=== PATIENT | male | born 1955 | race Caucasian/White ===

== ENCOUNTER → 2020-05-28 10:07 | Outpatient (BNVA) | payer MEDICARE, OTHER, SELFPAY | PROVIDERS: PCP Nurse Practitioner Family; Visit Provider Orthopaedic Surgery | DX: Z76.89 Persons encountering health services in other specified circumstances (principal) ==

== ENCOUNTER → 2020-06-18 11:14 | Outpatient (BNVA) | payer MEDICARE, OTHER, SELFPAY | PROVIDERS: PCP Nurse Practitioner Family; Referring Provider Nurse Practitioner Family; Visit Provider Nurse Practitioner Family | DX: Z01.810 Encounter for preprocedural cardiovascular examination (principal); I11.9 Hypertensive heart disease without heart failure; I49.3 Ventricular premature depolarization; M19.90 Unspecified osteoarthritis, unspecified site; F17.200 Nicotine dependence, unspecified, uncomplicated; Z71.6 Tobacco abuse counseling | CPT/HCPCS: 93005; 99214 ==

== ENCOUNTER 2020-06-21 09:46 | Outpatient (REF) | payer MEDICARE, OTHER, SELFPAY ==
[2020-06-21 11:14] LABS: MANUAL DIFF FLAG NO
[2020-06-21 11:34] LABS: Basophils Percent Auto 0.5 % (0-2); Eosinophils Absolute Auto 0.2 X10*3/uL (0.0-0.4); Eosinophils Percent Auto 2.6 % (0-4); Hemoglobin 14.3 g/dl (14.0-18.0); Imm Gran Abs Auto 0.05 X10*3/uL (0.00-0.03); Imm Gran Pct Auto 0.8 % (0.0-0.4); Lymphocytes Absolute Auto 1.6 X10*3/uL (1.2-4.9); Lymphocytes Percent Auto 26.2 % (20-40); Mean Corpuscular HGB Conc 33.3 g/dl (31.0-36.0); Mean Corpuscular Hemoglobin 33.2 pg (27.0-33.0); Mean Corpuscular Volume 99.8 fL (80-98); Mean Platelet Volume 10.2 fL (9.4-12.4); Monocytes Absolute Auto 0.6 X10*3/uL (0.1-1.2); Monocytes Percent Auto 9.2 % (2-11); Neutrophils Absolute Auto 3.8 X10*3/uL (2.0-8.3); Neutrophils Percent Auto 60.7 % (45-73); Platelet Count 137 X10*3/uL (160-400); Red Blood Count 4.31 X10*6/uL (4.60-5.80); Red Cell Distribution Width 11.9 % (11.0-16.0); White Blood Count 6.2 X10*3/uL (4.8-10.8)
[2020-06-21 11:38] LABS: Estimated Average Glucose 88 mg/dL; Hemoglobin A1c % 4.7 %
[2020-06-21 11:54] LABS: Anion Gap 12 (12-20); Blood Urea Nitrogen 15 mg/dL (9-16); Calcium 8.4 mg/dL (8.4-10.2); Carbon Dioxide 24 mmol/L (22-29); Chloride 106 mmol/L (96-108); Estimated Glomerular Filt Rate > 60; Glucose Random 86 mg/dL (60-115); Sodium 138 mmol/L (135-145)
== END 2020-06-21 09:47 | disposition home or self-care (01) ==
LOC: HO.HMGCLDS 09:46
PROVIDERS: PCP Nurse Practitioner Family; Visit Provider Orthopaedic Surgery
DX: Z01.810 Encounter for preprocedural cardiovascular examination (principal); Z01.812 Encounter for preprocedural laboratory examination
CPT/HCPCS: 36415; 80048; 83036; 85025

== ENCOUNTER → 2020-06-21 13:18 | Outpatient (REF) | payer MEDICARE, OTHER, SELFPAY ==
--- NOTE | 2020-06-21 13:21 | CA_ITS ---
Transthoracic Echocardiogram Patient (Last, First, Middle): Petey Reis A Gender: Male Date of : 1955 Age: 65 Procedure Date: 06/21/2020 Procedure Type: Transthoracic Echocardiogram Location: OP Height: 177.8 cm Weight: 103.42 kg BSA: 2.21 m2 Heart Rate: bpm BP: 128 / 90 mmHg Center Customer Service Associate: MARLENA Referring MD: Jasmin Reis NP-Karin Spot Sprayer: Osvaldo Cuellar MD Symptoms: Z01.810 - Encounter for preprocedural cardiovascular examination Study Quality: Fair ECG Rhythm: Sinus Conclusions: - 1. Normal LV systolic function with impaired relaxation filling pattern 2. RV appears mildly increased in size but could be due to off axis views 3. Normal cardiac valvular Doppler 4. Normal RV systolic pressure 5. No pericardial effusion Findings Left Ventricle Normal left ventricular size, thickness, and systolic function. The visually estimated ejection fraction is between 60-65%. Spectral Doppler is indicative of an impaired relaxation filling pattern. E/E prime ratio is <8, consistent with normal filling pressures. Evidence suggests grade I (mild) diastolic dysfunction. There is mild septal asymmetric hypertrophy. Right Ventricle Mildly increased right ventricular cavity size. There is normal right ventricular systolic function. Atria The left atrium is likely dilated. Interatrial shunt cannot be excluded. The right atrium is normal in size. Aortic Valve The aortic valve structure and function is likely normal. There is no aortic valve stenosis. There is no aortic valve regurgitation. Mitral Valve Normal mitral valve structure and function. There is trace mitral valve regurgitation. There is no mitral valve stenosis. Pulmonic Valve The pulmonic valve was not well visualized. Tricuspid Valve Likely normal tricuspid valve structure and function. There is trace tricuspid valve regurgitation. The right ventricular systolic pressure is normal. The right ventricular systolic pressure is 28 mmHg. Normal right atrial pressure. There is no evidence of pulmonary hypertension. Great Vessels All visible segments of the aorta are normal in size. The pulmonary artery was not well visualized. Venous The inferior vena cava was not well visualized. Pericardium/Pleural There is no evidence of pericardial effusion. Prior Study Comparison No significant change compared to prior study dated: 08/13/2016. Measurements 2D Linear Measurements IVSd: 1.40 0.6-0.9/0.6-1.0 cm LVIDd: 5.29 3.9-5.3/4.2-5.9 cm LVIDd Index: 2.39 2.4-3.2/2.2-3.1 cm/m2 LVIDs: 3.03 2.0-3.6 cm LVPWd: 0.82 0.7-1.1 cm Ao Root: 3.50 2.1-3.5 cm LA Diam: 3.80 2.7-3.8/3.0-4.0 cm LAIDs Index: 1.72 1.5-2.3 cm/m2 LV Mass: 285.85 67-162/88-224 g LV Mass Index: 129.34 43-95/49-115 g/m2 LVOT Diam: 2.30 3.0+(-)1.3 cm 2D Systolic Function EF 4C: 67.10 >55% Mitral Valve MV Pk E: 0.53 MV PK A: 0.57 MV Decel Time: 264.00 E/A: 0.90 E'Lateral: 10.70 E'Medial: 5.98 E/E' Med: 8.90 E/E' Lat: 5.00 PHT: 77.00 MVA PHT: 2.86 Decel Hutchinson: 2.02 Aortic Valve AoV Pk Larry: 1.64 AoV Pk Grad: 11.00 LVOT LVOT Pk Larry: 1.17 LVOT Mn Larry: 0.73 LVOT VTI: 0.27 LVOT Pk Grad: 5.00 LVOT Mn Grad: 3.00 LVOT Diam: 2.30 LVOT Area: 4.15 Diastolic Function MV Pk E: 0.53 MV Pk A: 0.57 E/A: 0.90 E'Medial: 5.98 E/E' Med: 8.90 E' Laterial: 10.70 E/E' Lat: 5.00 Tricuspid Valve TR Pk Larry: 2.48 TR Pk Grad: 25.00 RA Press: 3.00 RVSP: 28.00 Great Vessels Aorta Ao Root-2D: 3.50 2.0-3.7 cm Ao Asc: 3.80 2.1-3.4 cm Ao Arch: 3.60 Updated in Other Vendor System with Status of Final Osvaldo Cuellar MD electronically signed on 06/22/2020 9:56:51 AM with status of Final
== END ==
LOC: HO.CARD 13:18
PROVIDERS: PCP Nurse Practitioner Family; Visit Provider Nurse Practitioner Family
DX: Z01.810 Encounter for preprocedural cardiovascular examination (principal); I10 Essential (primary) hypertension; I51.7 Cardiomegaly
CPT/HCPCS: 36415; 80048; 83036; 85025; 93306

== ENCOUNTER 2020-06-29 10:55 | Outpatient (REF) | payer MEDICARE, OTHER, SELFPAY | END 2020-06-29 10:56 | disposition home or self-care (01) | LOC: HO.LAB 10:55 | PROVIDERS: PCP Nurse Practitioner Family; Visit Provider Physician Assistant | DX: Z01.818 Encounter for other preprocedural examination (principal); M16.11 Unilateral primary osteoarthritis, right hip; I10 Essential (primary) hypertension; F17.200 Nicotine dependence, unspecified, uncomplicated | CPT/HCPCS: 99212 ==

== ENCOUNTER 2020-07-04 06:08 | Inpatient (IN) | payer MEDICARE, OTHER, SELFPAY ==
[2020-06-25 12:48] VITALS: BP 130/72; PULSE 60; RESP 16; O2SAT 97; BMI 32.7
--- NOTE | 2020-06-25 13:31 | P.CONAN_ITS ---
Documented by User: Halle Galicia 07/03/20 12:02 HPI - Anesthesia Eval Consult details Narrative: 65yo M for L MAURY Cardiac cleared @ low-intermed PCP Cleared Labs, EKG done [facility] Past Medical History Medical History Collapsed lung HTN (hypertension) LVH (left ventricular hypertrophy) RIOS (obstructive sleep apnea) Osteoarthritis Preop cardiovascular exam PVC (premature ventricular contraction) Smoking Family History Family History Father Cancer Mother MVA (motor vehicle accident) Surgical History Surgical History H/O hemorrhoidectomy Hx of colonoscopy Social History Social History Are you a primary personal care attendant to a significant other at home: No Do you presently have visiting nurse or other home services: No Alcohol intake: current Alcohol intake frequency: a few times a month Alcohol type: beer Smoking Status: Current every day smoker Cigarettes Per Day: 4 Years Smoked: 20 Smoked in Last 30 Days: Yes Patient Interested in Nicotine Replacement: Yes Patient Given Instructions on How to Stop Smoking: Yes Date Education Initiated: 06/25/20 Second Hand Smoke Exposure: No Use of substances other than those prescribed or required for medical reasons: No Have you been hit, kicked, punched, or otherwise hurt by someone within the past year? If so, by whom?: No Advance Directives: No Advance Directives Information Provided: No Advance Directives on File: No Recently lost weight without trying: No Narrative Narrative: No recent illness >4 mets with daily 3 hour bike ride Meds Allergies Allergy/AdvReac Type Severity Reaction Status Date / Time No Known Allergies Allergy Verified 06/29/20 11:07 [No Known Allergies*] Home Medications Medication Instructions Recorded Confirmed Type ibuprofen 400 mg PO BID PRN 06/25/20 06/25/20 History Exam Exam Date and Time: June 25, 2020 1331 Height,Weight and Vital Signs: Height 5 ft 10 in Weight 103.419 kg Last Vital Signs Pulse 60 06/25/20 12:48 Resp 16 06/25/20 12:48 BP 130/72 06/25/20 12:48 Pulse Ox 97 06/25/20 12:48 Pertinent Lab Results Pertinent Lab Results: Laboratory Tests 06/21/20 06/21/20 09:54 09:54 WBC 6.2 Hgb 14.3 Hct 43.0 Plt Count 137 L Sodium 138 Potassium 4.0 Chloride 106 BUN 15 Creatinine 0.90 Narrative Narrative: ECHO 06/21/20: Nml LV sys function with impaired relaxation, mild septal assymetric hypertrophy, RV appears mildly increased in size, nml valve dopplers EKG 06/18/20: SR, LAD, non-spec T wave anb Airway Mallampati Class: I TM Dist: >3cm Neck ROM: Full Denture: Upper Loose/Missing/Broken Teeth: Yes (Missing lower molars) Heart: RRR Lungs: CTAB Assessment and Plan Assessment Anesthesia Assessment: Anesthesia Plan Discussed, Smoking Cess. Discussed and PAT Visit Documented by User: Yao Castillo 07/04/20 07:27 [facility] Past Medical History Medical History Collapsed lung HTN (hypertension) LVH (left ventricular hypertrophy) RIOS (obstructive sleep apnea) Osteoarthritis Preop cardiovascular exam PVC (premature ventricular contraction) Smoking Family History Family History Father Cancer Mother MVA (motor vehicle accident) Surgical History Surgical History H/O hemorrhoidectomy Hx of colonoscopy Social History Social History Are you a primary personal care attendant to a significant other at home: No Do you presently have visiting nurse or other home services: No Alcohol intake: current Alcohol intake frequency: a few times a month Alcohol type: beer Smoking Status: Current every day smoker Cigarettes Per Day: 4 Years Smoked: 20 Smoked in Last 30 Days: Yes Patient Interested in Nicotine Replacement: Yes Patient Given Instructions on How to Stop Smoking: Yes Date Education Initiated: 06/25/20 Second Hand Smoke Exposure: No Use of substances other than those prescribed or required for medical reasons: No Have you been hit, kicked, punched, or otherwise hurt by someone within the past year? If so, by whom?: No Advance Directives: No Advance Directives Information Provided: No Advance Directives on File: No Recently lost weight without trying: No Meds Allergies Allergy/AdvReac Type Severity Reaction Status Date / Time No Known Allergies Allergy Verified 06/29/20 11:07 [No Known Allergies*] Home Medications Medication Instructions Recorded Confirmed Type ibuprofen 400 mg PO BID PRN 06/25/20 06/25/20 History Assessment and Plan Assessment Anesthesia Assessment: Anesthesia Plan Discussed Final Anesthetic Review NPO: Yes ASA Class: II Final Preanesthetic Review: No Changes in Pt Med Stat and Consent Obtained/Reviewed Anesthetic Plan Anesthetic Plan: GA Disposition: Standard PACU
[2020-06-25 15:35] LABS: MRSA Nasal PCR NEGATIVE (Negative); SA Nasal PCR NEGATIVE (Negative)
[2020-07-04] VITALS (13 sets, daily range): BP systolic 127–160; BP diastolic 64–99; PULSE 73–89; RESP 16–20; TEMP 36.4–37.2; O2SAT 92–98
[2020-07-04] MEDS: oxyCODONE HCl ER 10 MG TAB.ER.12H PO ×2 (06:22→20:41)
[2020-07-04] MEDS: Gabapentin 300 MG CAPSULE 600 MG PO (06:22)
[2020-07-04 06:23] LABS: COVID-19 Test Negative (Negative)
[2020-07-04] MEDS: Lactated Ringers 1,000 ML 100 ML IVCONT (06:23)
--- NOTE | 2020-07-04 08:27 | XR_ITS ---
EXAMINATION: XR PELVIS CLINICAL INFORMATION: Status post total hip arthroplasty COMPARISON: 02/06/2020 TECHNIQUE: AP view of the pelvis. FINDINGS: Status post left total hip arthroplasty. The arthroplasty components are in usual position and alignment. No periprosthetic fracture. Post surgical changes with skin natalia, gas in the soft tissues. XR/XR pelvis 1-2V IMPRESSION: Post surgical changes status post left total hip arthroplasty.
--- NOTE | 2020-07-04 09:27 | P.BOP_ITS ---
Brief Operative Note Date of procedure: 07/04/20 Pre-op diagnosis: lef hip OA Post-op diagnosis: same Procedure: left MAURY Implants: syl 54 trident with 54 elevated rim liner, accolade 2 #5 127 deg with 36 ceramic +0 Surgeon: Jacoby Benites MD Anesthesia: GETA and local Clinical Trials Assistant: Luis Bustillo Estimated blood loss (mL): 200 IV fluids (mL): 1,000 Pathology: other Condition: stable Disposition: PACU
--- NOTE | 2020-07-04 11:11 | OP_ITS ---
SURGEON: Jacoby Benites MD INDICATIONS: A 65-year-old gentleman with severe osteoarthritis of the left hip, consented to undergo hip arthroplasty. PREOPERATIVE DIAGNOSIS: Left hip osteoarthritis. POSTOPERATIVE DIAGNOSIS: Left hip osteoarthritis. PROCEDURE PERFORMED: Left total hip arthroplasty. ESTIMATED BLOOD LOSS: 200 mL. COMPLICATIONS: None. ANESTHESIA: General and local. ASSISTANTS: SPECIMENS: IMPLANTS: Slava Trident 54 hemispherical acetabulum with 20-degree elevated lip liner, Accolade II #5 127-degree with a ceramic +0 36 femoral head. FLUIDS: 1 L. PROCEDURE IN DETAIL: The patient was brought to the operating room, placed in the right lateral decubitus position. All bony prominences were well padded. He was prepped and draped in standard sterile fashion. Time-out was called to identify proper site, proper procedure, proper surgeon. IV antibiotics per weight were administered. I began by making a curvilinear incision over the posterolateral aspect of the greater trochanter. Dissection was taken down to the tensor fascia and this was incised in line with the incision. A Charnley retractor was placed. I then identified the piriformis, cauterized the circumflex vessels and made a full-thickness capsulotomy extending down from the piriformis to the lesser trochanter. The capsule on head and piriformis were tagged and the head was dislocated. The head was eburnated and deformed. A neck cut was made just proximal to the lesser trochanter. I then placed my anterior-posterior acetabular retractors. He had a very deep acetabulum secondary to the body habitus, so care was taken to identify the fovea and to ream down to the inner table. I performed a labrectomy and then sequentially reamed up to 54 and a 54 Trident revision cup was placed in 20 degrees of anteversion and 45 degrees of inclination. A posterior lip liner was placed and then I turned my attention to the femur. Qianrui Clothes cutter was used to lateralize and then I sequentially broached up to a 5. A 5 was trialed. I was happy with the stability and range, therefore my final 5 implant was trialed and I again trialed a 0+ 25 head. I was happy with the 0 head. This was placed. I then performed a layered closure with FiberWire for the capsule and natalia on skin. The patient was placed in sterile dressing. Radiographs were obtained and he was taken to recovery room in stable condition. There were no known complications. BARREL RIFLER HOOK: NINO Blue. MD PETTY Pate/ALEXANDER / [id number]
--- NOTE | 2020-07-04 12:31 | PM.IMCN ---
History of Present Illness Data of Consult Service Date: 07/04/20 Requesting physician: Jacoby Benites Primary Care Provider: Breezy Rogers, [facility] HPI Reason for consult: htn 65-year-old male was in the hospital after elective left hip surgery for osteoarthritis. Patient has a history of hypertension and left ventricular hypertrophy. He is treated with losartan which was recently increased to 75 mg p.o. daily. He is also an active smoker, he states he smokes less than half a pack per day and is not feeling any withdrawal at this time. Patient denies any chest pain, shortness of breath, fever, chills. Review of Systems Review of Systems: Constitutional: Denies fever, denies Chills Eyes: denies blurry vision ENT: denies sore throat CVS: denies chest pain Respiratory: Denies dyspnea GI: no abdominal pain : denies dysuria MSK: denies neck pain Skin: denies rash Neuro: denies specific motor weakness Psych: denies suicidal ideation Endocrine: denies heat/cold intoleratnce Hematologic: denies easy bleeding Allergy: denies hives PMFSH Medical History Collapsed lung HTN (hypertension) LVH (left ventricular hypertrophy) RIOS (obstructive sleep apnea) Osteoarthritis Preop cardiovascular exam PVC (premature ventricular contraction) Smoking Family History Father Cancer Mother MVA (motor vehicle accident) Family history: reviewed and not pertinent Surgical History H/O hemorrhoidectomy Hx of colonoscopy Social History Are you a primary residential child care counselor to a significant other at home: No Do you presently have visiting nurse or other home services: No Alcohol intake: current Alcohol intake frequency: a few times a month Alcohol type: beer Smoking Status: Current every day smoker Cigarettes Per Day: 4 Years Smoked: 20 Smoked in Last 30 Days: Yes Patient Interested in Nicotine Replacement: Yes Patient Given Instructions on How to Stop Smoking: Yes Date Education Initiated: 06/25/20 Second Hand Smoke Exposure: No Use of substances other than those prescribed or required for medical reasons: No Have you been hit, kicked, punched, or otherwise hurt by someone within the past year? If so, by whom?: No Advance Directives: No Advance Directives Information Provided: No Advance Directives on File: No Recently lost weight without trying: No Meds Allergies Allergy/AdvReac Type Severity Reaction Status Date / Time No Known Allergies Allergy Verified 06/29/20 11:07 [No Known Allergies*] Home Medications Medication Instructions Recorded Confirmed Type ibuprofen 400 mg PO BID PRN 06/25/20 06/25/20 History Physical Exam Vital Signs and Narrative: Vital Signs: Last Vital Signs Temp 98.4 F 07/04/20 12:00 Pulse 80 07/04/20 12:00 Resp 18 07/04/20 12:00 BP 137/93 H 07/04/20 12:00 Pulse Ox 98 07/04/20 12:00 Body Mass Index 32.7 General: no acute distress HEENT: atraumatic Neck: normal to visual inspection CVS: S1, S2, RRR Resp: CTA bilateral Chest: non tender GI: soft, non tender, non distended : no CVA tenderness Skin: no rashes Extremities: no edema Neuro: Oriented X3, grossly intact Psych: cooperative, Results Labs Labs: Laboratory Results - last 24 hr 07/04/20 05:45 COVID-19 (ELANA) Negative COVID-19 Clin Com See Note Imaging Radiologist's Impressions: Impressions Pelvis X-Ray 07/04/20 08:27 IMPRESSION: Post surgical changes status post left total hip arthroplasty. Assessment and Plan (1) HTN (hypertension): Status: Acute (2) LVH (left ventricular hypertrophy): Status: Acute (3) Osteoarthritis of left hip: Status: Acute (4) Smoking: Status: Acute 65M presented for elective left hip replacement osteoarthritis left hip status post left total hip arthroplasty management per Orthopedics hypertension and left ventricular hypertrophy continue losartan smoking cessation states that he does not need a nicotine patch at this time
[2020-07-04] MEDS: Dextrose 5 % and 0.45 % NaCl 1,000 ML 80 ML IVCONT (12:41)
[2020-07-04] MEDS: ceFAZolin Sodium/Dextrose,Iso 2 GM/50 ML PIGGYBACK IV (13:27)
[2020-07-04] MEDS: oxyCODONE HCl Immed Release 5 MG TABLET 10 MG PO (17:10)
[2020-07-04] MEDS: HYDROmorphone HCl 0.5 MG/0.5 ML SYRINGE 0.25 MG IVPUSH (20:40)
[2020-07-04] MEDS: Celecoxib 200 MG CAPSULE PO (20:41)
[2020-07-05] VITALS (8 sets, daily range): BP systolic 106–147; BP diastolic 79–101; PULSE 65–89; RESP 18–20; TEMP 36.2–36.5; O2SAT 78–97; BMI 32.7
[2020-07-05] MEDS: Dextrose 5 % and 0.45 % NaCl 1,000 ML 80 ML IVCONT (00:13)
[2020-07-05] MEDS: oxyCODONE HCl Immed Release 5 MG TABLET 10 MG PO ×2 (06:33→18:41)
[2020-07-05 06:59] LABS: MANUAL DIFF FLAG NO
[2020-07-05 07:11] LABS: Basophils Percent Auto 0.2 % (0-2); Eosinophils Percent Auto 0.1 % (0-4); Hematocrit 37.4 % (42-52); Hemoglobin 12.5 g/dl (14.0-18.0); Imm Gran Abs Auto 0.08 X10*3/uL (0.00-0.03); Imm Gran Pct Auto 0.6 % (0.0-0.4); Lymphocytes Absolute Auto 1.5 X10*3/uL (1.2-4.9); Lymphocytes Percent Auto 12.2 % (20-40); Mean Corpuscular HGB Conc 33.4 g/dl (31.0-36.0); Mean Corpuscular Hemoglobin 33.2 pg (27.0-33.0); Mean Corpuscular Volume 99.5 fL (80-98); Mean Platelet Volume 9.8 fL (9.4-12.4); Monocytes Percent Auto 8.4 % (2-11); Neutrophils Absolute Auto 9.7 X10*3/uL (2.0-8.3); Neutrophils Percent Auto 78.5 % (45-73); Platelet Count 210 X10*3/uL (160-400); Red Blood Count 3.76 X10*6/uL (4.60-5.80); Red Cell Distribution Width 11.9 % (11.0-16.0); White Blood Count 12.4 X10*3/uL (4.8-10.8)
--- NOTE | 2020-07-05 07:33 | PM.PNORT ---
Subjective Subjective Interval history: POD1 s/p LTHA pt. is resting comfortably in the recliner. He states that his pain is well managed. No overnight events. He has gotten up to use the rest room. Physical Exam Vital Signs: Vital Signs: Last Vital Signs Temp 97.3 F 07/05/20 03:38 Pulse 65 07/05/20 03:38 Resp 19 07/05/20 03:38 BP 121/82 07/05/20 03:38 Pulse Ox 96 07/05/20 03:38 Body Mass Index 32.7 Const: General: cooperative, healthy appearing and no acute distress Resp: Effort & Inspection: normal respiratory effort and able to speak in complete sentences Cardio: Rate: regular rate Peripheral pulses: Peripheral pulses 2+ throughout GI: Inspection: Yes normal to inspection Palpation (GI): Soft to palpation Skin: General skin exam: no rashes or lesions noted Extrem: Other: Lt hip no ecchymosis, redness, or drainage Dressing is clean, dry, and intact. NVI. Progress Note: A&P Assessment and plan (1) History of total left hip arthroplasty: Status: Acute Assessment and Plan: Continue pain mgmnt Begin ASA for dvt ppx today begin PT for LT MAURY / posterior precautions Dispo planning-Pending PT eval, pain mgmnt Fall Risk Details Current Medications: Current Medications Generic Name Dose Route Start Last Admin Trade Name Freq PRN Reason Stop Dose Admin Acetaminophen 650 mg 07/04/20 11:42 Acetaminophen 325 Mg Tablet PO Q6H PRN Pain, Mild (Pain Scale 1-3) Celecoxib 200 mg 07/04/20 21:00 07/04/20 20:41 Celecoxib 200 Mg Capsule PO 200 mg BID SAMARA Administration Fentanyl 50 mcg 07/04/20 10:02 Fentanyl Citrate/Pf 100 Mcg/2 Ml Vial IVPUSH Q30M PRN Pain, Moderate (Pain Scale 4-6 Fentanyl 50 mcg 07/04/20 10:03 Fentanyl Citrate/Pf 100 Mcg/2 Ml Vial IVPUSH Q5M PRN Pain, Moderate (Pain Scale 4-6 Hydromorphone HCl 0.5 mg 07/04/20 10:03 Hydromorphone Hcl 0.5 Mg/0.5 Ml Syringe IVPUSH Q5M PRN Pain, Severe (Pain Scale 7-10) Hydromorphone HCl 0.25 mg 07/04/20 11:42 07/04/20 20:40 Hydromorphone Hcl 0.5 Mg/0.5 Ml Syringe IVPUSH 0.25 mg Q4H PRN Administration Pain, Severe (Pain Scale 7-10) Dextrose/Sodium Chloride 1,000 mls @ 80 mls/hr 07/04/20 11:42 07/05/20 00:13 D51/2ns IVCONT 80 mls/hr .[id number] SAMARA Administration Losartan Potassium 75 mg 07/05/20 09:00 Losartan Potassium 25 Mg Tablet PO DAILY [facility] Protocol Naloxone HCl 0.2 mg 07/04/20 11:42 Naloxone Hcl 0.4 Mg/Ml Vial IVPUSH Q2M PRN Excessive sedation or RR < 8 Ondansetron HCl 4 mg 07/04/20 10:00 Ondansetron Hcl 4 Mg/2 Ml Vial IVPUSH ONCE PRN Nausea and Vomiting Ondansetron HCl 4 mg 07/04/20 11:42 Ondansetron Hcl 4 Mg/2 Ml Vial IVPUSH Q8H PRN Nausea and Vomiting Oxycodone HCl 10 mg 07/04/20 10:03 Oxycodone Hcl Immed Release 5 Mg Tablet PO ONCE PRN Pain, Severe (Pain Scale 7-10) Oxycodone HCl 10 mg 07/04/20 11:42 07/05/20 06:33 Oxycodone Hcl Immed Release 5 Mg Tablet PO 10 mg Q4H PRN Administration Pain, Moderate (Pain Scale 4-6 Oxycodone HCl 10 mg 07/04/20 21:00 07/04/20 20:41 Oxycodone Hcl Er 10 Mg Tab.Er.12h PO 10 mg BID SAMARA Administration Senna 17.2 mg 07/04/20 11:42 Sennosides 8.6 Mg Tablet PO BEDTIME PRN Constipation Sodium Chloride 3 ml 07/04/20 16:00 07/05/20 07:08 0.9 % Sodium Chloride Flush 3 Ml Syringe IVFLUSH Not Given QSHIFT [facility] Time Spent With Patient Time: Total time spent is greater than 50% in coordination of care (as documented) at patient's floor/unit and/or counseling patient: Time with patient: 15 - 24 minutes
[2020-07-05 07:54] LABS: Anion Gap 11 (12-20); Blood Urea Nitrogen 10 mg/dL (9-16); Calcium 8.1 mg/dL (8.4-10.2); Carbon Dioxide 25 mmol/L (22-29); Chloride 101 mmol/L (96-108); Creatinine Clr Calc Pharmacy 118.2; Estimated Glomerular Filt Rate > 60; Glucose Fasting 111 mg/dL (60-99); Potassium 4.4 mmol/l (3.3-5.1); Sodium 133 mmol/L (135-145)
[2020-07-05] MEDS: Aspirin 325 MG TABLET PO ×2 (08:11→21:28)
[2020-07-05] MEDS: oxyCODONE HCl ER 10 MG TAB.ER.12H PO ×2 (08:12→21:28)
[2020-07-05] MEDS: Celecoxib 200 MG CAPSULE PO ×2 (08:12→21:28)
[2020-07-05] MEDS: Losartan Potassium 25 MG TABLET 75 MG PO (08:12)
--- NOTE | 2020-07-05 09:01 | P.PNIM_ITS ---
Subjective Subjective Date of Service: 07/05/20 Interval History: feels well Cardiovascular Cardiovascular: Reports no additional cardiovascular complaints Respiratory Respiratory: Reports no additional respiratory complaints Physical Exam Vital Signs: Vital Signs: Last Vital Signs Temp 97.2 F 07/05/20 08:00 Pulse 70 07/05/20 08:00 Resp 19 07/05/20 08:00 BP 129/101 H 07/05/20 08:00 Pulse Ox 95 07/05/20 08:00 Body Mass Index 32.7 General: AO X 3, no acute distress Resp: CTA bilateral CVS: S1,S2,RRR GI: soft, non tender, non distended Neuro: motor grossly intact Psych: appropriate affect Objective Data Current Medications Generic Name Dose Route Start Last Admin Trade Name Freq PRN Reason Stop Dose Admin Acetaminophen 650 mg 07/04/20 11:42 Acetaminophen 325 Mg Tablet PO Q6H PRN Pain, Mild (Pain Scale 1-3) Aspirin 325 mg 07/05/20 10:00 07/05/20 08:11 Aspirin 325 Mg Tablet PO 325 mg BID SAMARA Administration Celecoxib 200 mg 07/04/20 21:00 07/05/20 08:12 Celecoxib 200 Mg Capsule PO 200 mg BID SAMARA Administration Fentanyl 50 mcg 07/04/20 10:02 Fentanyl Citrate/Pf 100 Mcg/2 Ml Vial IVPUSH Q30M PRN Pain, Moderate (Pain Scale 4-6 Fentanyl 50 mcg 07/04/20 10:03 Fentanyl Citrate/Pf 100 Mcg/2 Ml Vial IVPUSH Q5M PRN Pain, Moderate (Pain Scale 4-6 Hydromorphone HCl 0.5 mg 07/04/20 10:03 Hydromorphone Hcl 0.5 Mg/0.5 Ml Syringe IVPUSH Q5M PRN Pain, Severe (Pain Scale 7-10) Hydromorphone HCl 0.25 mg 07/04/20 11:42 07/04/20 20:40 Hydromorphone Hcl 0.5 Mg/0.5 Ml Syringe IVPUSH 0.25 mg Q4H PRN Administration Pain, Severe (Pain Scale 7-10) Dextrose/Sodium Chloride 1,000 mls @ 80 mls/hr 07/04/20 11:42 07/05/20 00:13 D51/2ns IVCONT 80 mls/hr .[id number] SAMARA Administration Losartan Potassium 75 mg 07/05/20 09:00 07/05/20 08:12 Losartan Potassium 25 Mg Tablet PO 75 mg DAILY SAMARA Administration Protocol Naloxone HCl 0.2 mg 07/04/20 11:42 Naloxone Hcl 0.4 Mg/Ml Vial IVPUSH Q2M PRN Excessive sedation or RR < 8 Ondansetron HCl 4 mg 07/04/20 10:00 Ondansetron Hcl 4 Mg/2 Ml Vial IVPUSH ONCE PRN Nausea and Vomiting Ondansetron HCl 4 mg 07/04/20 11:42 Ondansetron Hcl 4 Mg/2 Ml Vial IVPUSH Q8H PRN Nausea and Vomiting Oxycodone HCl 10 mg 07/04/20 10:03 Oxycodone Hcl Immed Release 5 Mg Tablet PO ONCE PRN Pain, Severe (Pain Scale 7-10) Oxycodone HCl 10 mg 07/04/20 11:42 07/05/20 06:33 Oxycodone Hcl Immed Release 5 Mg Tablet PO 10 mg Q4H PRN Administration Pain, Moderate (Pain Scale 4-6 Oxycodone HCl 10 mg 07/04/20 21:00 07/05/20 08:12 Oxycodone Hcl Er 10 Mg Tab.Er.12h PO 10 mg BID SAMARA Administration Senna 17.2 mg 07/04/20 11:42 Sennosides 8.6 Mg Tablet PO BEDTIME PRN Constipation Sodium Chloride 3 ml 07/04/20 16:00 07/05/20 07:08 0.9 % Sodium Chloride Flush 3 Ml Syringe IVFLUSH Not Given QSHIFT [facility] Labs CBC & Chem 7: 07/05/20 06:27 07/05/20 06:27 Assessment and Plan (1) HTN (hypertension): Status: Acute (2) LVH (left ventricular hypertrophy): Status: Acute (3) Osteoarthritis of left hip: Status: Acute (4) Smoking: Status: Acute Assessment and Plan: 65M presented for elective left hip replacement osteoarthritis left hip status post left total hip arthroplasty management per Orthopedics on asa bid for dvt prophylaxis hypertension and left ventricular hypertrophy continue losartan, controlled smoking cessation states that he does not need a nicotine patch at this time
--- NOTE | 2020-07-05 12:56 | MHC.CM.PN ---
NURSE CAR3 SPOUT TENDER NOTE ELECTRO IC MEDICAL RECRD REVIEWED ALONG WITH CASE DISCUSSED WITH PHYSICAL AND OCCUPATIONAL THEARPIST AND STAFF NURSE , MET WITH PATIENT HE IS LIVING IN A APARTEMENT THAT HE SHARES WITH REGIS.. HE IS ACTIVE , INDEPENDEDNT IN ALL ADLS AND MOBILITY. HE HAS NO VNA NO DM E SERVICES IN THE HOME HE IS NOW POST OP DAY 1 FROM L- [facility] . HE HAS BEEN EVALUATED BY BOTH THE PHYSICAL THEARPIST AND OCCUPATIONAL THEARPIST AND THEY ARE RECOMENDING HOME PHYSICAL THEARPIST AFTER REVIEW OF VNA AGENCIES [facility]RY DISCHARGE PLAN HOME WITH [facility] , PATIENT HAS A WALKER AT HOME AND IS USING CRUTCHES HERE HE HAS 3 STEPS TO ENTER HIS HOME AND ABOUT 15 STEPS TO THE SECOND FLOOR TRANSPORATION FRIENDS PCP THERESE LESLIE AND ORTHO PEDIC SURGICAL FOLLOW UP PER DISCHARGE INSTRUCTIONS IMM Pperwork completyed.
--- NOTE | 2020-07-05 13:33 | HO.POSTANES ---
Post Anesthesia Evaluation Post Anesthesia Evaluation Vital Signs: Vital Signs Temp Pulse Resp BP Pulse Ox 07/05/20 12:54 79 147/87 H 97 07/05/20 11:43 97.5 F 79 19 147/87 H 97 07/05/20 08:00 97.2 F 70 19 129/101 H 95 07/05/20 03:38 97.3 F 65 19 121/82 96 Anesthesia: General Mental Status: Awake Pain Control: Satisfactory Nausea/Vomiting: None Hydration: Adequate Anesthesia-Related Issues: No Anes. Related Issues
[2020-07-05] MEDS: 0.9 % Sodium Chloride Flush 3 ML SYRINGE IVFLUSH ×2 (15:51→21:29)
[2020-07-05] MEDS: HYDROmorphone HCl 0.5 MG/0.5 ML SYRINGE 0.25 MG IVPUSH (21:28)
[2020-07-06 03:32] VITALS: BP 128/74; PULSE 68; RESP 20; TEMP 36.6; O2SAT 99
[2020-07-06 06:54] LABS: MANUAL DIFF FLAG NO
[2020-07-06 07:01] LABS: Basophils Percent Auto 0.5 % (0-2); Eosinophils Absolute Auto 0.1 X10*3/uL (0.0-0.4); Eosinophils Percent Auto 1.4 % (0-4); Hematocrit 35.1 % (42-52); Hemoglobin 11.7 g/dl (14.0-18.0); Imm Gran Abs Auto 0.12 X10*3/uL (0.00-0.03); Imm Gran Pct Auto 1.4 % (0.0-0.4); Lymphocytes Absolute Auto 1.9 X10*3/uL (1.2-4.9); Mean Corpuscular HGB Conc 33.3 g/dl (31.0-36.0); Mean Corpuscular Hemoglobin 33.2 pg (27.0-33.0); Mean Corpuscular Volume 99.7 fL (80-98); Mean Platelet Volume 9.6 fL (9.4-12.4); Monocytes Absolute Auto 0.8 X10*3/uL (0.1-1.2); Monocytes Percent Auto 9.8 % (2-11); Neutrophils Absolute Auto 5.3 X10*3/uL (2.0-8.3); Neutrophils Percent Auto 63.9 % (45-73); Platelet Count 167 X10*3/uL (160-400); Red Blood Count 3.52 X10*6/uL (4.60-5.80); Red Cell Distribution Width 12.3 % (11.0-16.0); White Blood Count 8.4 X10*3/uL (4.8-10.8)
[2020-07-06 07:10] VITALS: BP 140/92; PULSE 68; RESP 16; TEMP 36.4; O2SAT 97
[2020-07-06 07:26] LABS: Anion Gap 10 (12-20); Blood Urea Nitrogen 12 mg/dL (9-16); Calcium 7.7 mg/dL (8.4-10.2); Carbon Dioxide 27 mmol/L (22-29); Chloride 102 mmol/L (96-108); Creatinine Clr Calc Pharmacy 112.4; Estimated Glomerular Filt Rate > 60; Glucose Fasting 82 mg/dL (60-99); Potassium 4.1 mmol/l (3.3-5.1); Sodium 135 mmol/L (135-145)
--- NOTE | 2020-07-06 07:29 | PM.DS ---
DS: Providers Provider Date of admission: 07/04/20 06:08 Date of discharge: 07/06/20 Primary care physician: GINNY Tejada Consults: 07/04/20 11:42 Consult to Hospitalist Routine Consulting Provider: Hospitalist Reason for consultation: post op medical managment DS: Diagnosis Discharge Diagnosis (1) History of total left hip arthroplasty: Status: Acute Problem details: Mr. Reis is a 65 y.o. male who presented to the office with lt hip osteoarthritis and pain. He failed all conservative measures and elected to undergo a LT MAURY on 07/04/20. DS: Medications Discharge Medications Home Medications: Home Medications Medication Instructions Recorded Confirmed ibuprofen 400 mg PO BID PRN 06/25/20 06/25/20 Previous Rx's Medication Instructions Recorded losartan 50 mg tablet 75 mg PO DAILY 90 Days #135 tab 06/18/20 DS: Summary Hospital Course Hospital Course: Underwent a LTHA, the procedure was successful and he was transferred to the PACU and then to the medical floor. During his visit he remained afebrile at 97.6, labs unremarkable; H+H: 12.5 and 37.4. POD1 he began ASA for DVT ppx and received p.t./ot services twice a day. Prior to d/c his dressing was removed. Incision was clean dry and intact. No ecchymosis or drainage. Meli intact. New Aquacel dressing applied. Plan is to be discharged home with VNA services. Time Spent with Patient Time attestation: Total time spent providing and/or coordinating discharge services: Discharge coordination time: Greater than 30 minutes Physical Exam Vital Signs: Vital Signs: Last Vital Signs Temp 97.6 F 07/06/20 07:10 Pulse 68 07/06/20 07:10 Resp 16 07/06/20 07:10 BP 140/92 H 07/06/20 07:10 Pulse Ox 97 07/06/20 07:10 Body Mass Index 32.7 Const: General: cooperative, healthy appearing and no acute distress Resp: Effort & Inspection: normal respiratory effort and able to speak in complete sentences Cardio: Rate: regular rate Peripheral pulses: Peripheral pulses 2+ throughout GI: Inspection: Yes normal to inspection Palpation (GI): Soft to palpation Skin: General skin exam: no rashes or lesions noted Extrem: Other: No ecchymosis, redness, or drainage. Dressing is clean dry and intact. Meli intact. NVI. DS: Data Data Completed and Pending Completed studies during hospitalization [Text1]: Pending at discharge 07/04/20 09:10 Surgical [PTH] Routine Labs on day of discharge: 06/25/20 13:30 MRSA Nasal Screen Routine 06/29/20 12:25 Type and Screen Routine 07/04/20 05:45 COVID-19 ID NOW ([place]) Stat 07/04/20 05:48 Acetaminophen [Ofirmev] 1,000 mg in 100 ml IV PREOP Albuterol Sulfate (0.083%) [Ventolin (0.083%)] 2.5 mg INHALE ONCE PRN Gabapentin [Neurontin] 600 mg PO PREOP ONE oxyCODONE HCl ER [OxyCONTIN] 10 mg PO PREOP ONE 07/04/20 06:00 Lactated Ringers [Lr] 1,000 ml IVCONT 100 mls/hr 07/04/20 06:20 Gabapentin [Neurontin] 300 mg .ROUTE .STK-MED ONE oxyCODONE HCl ER [OxyCONTIN] 10 mg PO .STK-MED ONE 07/04/20 06:21 Acetaminophen [Ofirmev] 1,000 mg in 100 ml IV As directed ceFAZolin Sodium/Dextrose,Iso [Ancef] 2 gm in 50 ml .ROUTE As directed 07/04/20 07:10 Lidocaine HCl 2 % MPF [Xylocaine 2 % MPF] 5 ml .ROUTE .STK-MED ONE Rocuronium Durand [Zemuron] 100 mg IV .STK-MED ONE Succinylcholine Chloride [Quelicin] 100 mg IVPUSH .STK-MED ONE Tranexamic Acid [Cyklokapron] 1,000 mg .ROUTE .STK-MED ONE 07/04/20 07:11 Midazolam HCl/PF [Versed] 2 mg IVPUSH .STK-MED ONE fentaNYL citrate/PF [Sublimaze] 50 mcg .ROUTE .STK-MED ONE propofoL [Diprivan] 200 mg IVPUSH .STK-MED ONE 07/04/20 07:28 Bupivacaine MPF 0.75 % w/EPI [Sensorcaine MPF 0.75%/EPI 1:200,000] 30 ml .ROUTE .STK-MED ONE 07/04/20 07:57 dexAMETHasone sod phosphate [Decadron] 4 mg .ROUTE .STK-MED ONE 07/04/20 08:04 HYDROmorphone HCl [Dilaudid] 2 mg .ROUTE .K-MED ONE 07/04/20 08:27 XR pelvis 1-2V Routine 07/04/20 08:44 Sugammadex Sodium [Bridion] 200 mg IVPUSH .STK-MED ONE Tranexamic Acid [Cyklokapron] 1,000 mg .ROUTE .K-[facility] ONE ondansetron HCL [Zofran] 4 mg .ROUTE .K-MED ONE 07/04/20 09:10 Surgical [PTH] Routine 07/04/20 09:51 Transfer Order Routine 07/04/20 09:54 fentaNYL citrate/PF [Sublimaze] 100 mcg .ROUTE .STK-MED ONE 07/04/20 10:03 Continuous pulse oximetry CONT 07/04/20 11:42 Dextrose 5 % and 0.45 % NaCl [D51/2Ns] 1,000 ml IVCONT 80 mls/hr 07/04/20 11:42 Straight Urinary Catheterization NEEDED 07/04/20 13:31 ceFAZolin Sodium/Dextrose,Iso [Ancef] 2 gm in 50 ml IV POSTOP 07/05/20 06:27 Basic Metabolic Panel Fasting DAILY@0600 Complete Blood Count Auto Diff DAILY@0600 07/06/20 06:29 Basic Metabolic Panel Fasting DAILY@0600 Laboratory Last Values WBC 12.4 X10*3/uL (4.8-10.8) H 07/05/20 06:27 RBC 3.76 X10*6/uL (4.60-5.80) L 07/05/20 06:27 Hgb 12.5 g/dl (14.0-18.0) L 07/05/20 06:27 Hct 37.4 % (42-52) L 07/05/20 06:27 MCV 99.5 fL (80-98) H 07/05/20 06:27 MCH 33.2 pg (27.0-33.0) H 07/05/20 06:27 MCHC 33.4 g/dl (31.0-36.0) 07/05/20 06:27 RDW 11.9 % (11.0-16.0) 07/05/20 06:27 Plt Count 210 X10*3/uL (160-400) D 07/05/20 06:27 MPV 9.8 fL (9.4-12.4) 07/05/20 06:27 Immature Gran % (Auto) 0.6 % (0.0-0.4) H 07/05/20 06:27 Neut % (Auto) 78.5 % (45-73) H 07/05/20 06:27 Lymph % (Auto) 12.2 % (20-40) L 07/05/20 06:27 [place] % (Auto) 8.4 % (2-11) 07/05/20 06:27 Eos % (Auto) 0.1 % (0-4) 07/05/20 06:27 Baso % (Auto) 0.2 % (0-2) 07/05/20 06:27 Lymph # (Auto) 1.5 X10*3/uL (1.2-4.9) 07/05/20 06:27 [place] # (Auto) 1.0 X10*3/uL (0.1-1.2) 07/05/20 06:27 Eos # (Auto) 0.0 X10*3/uL (0.0-0.4) 07/05/20 06:27 Baso # (Auto) 0.0 X10*3/uL (0.0-0.2) 07/05/20 06:27 Abs Immat Gran (auto) 0.08 X10*3/uL (0.00-0.03) H 07/05/20 06:27 Absolute Neuts (auto) 9.7 X10*3/uL (2.0-8.3) H 07/05/20 06:27 Absolute Nucleated RBC 0.000 X10*3/uL (0.0-0.012) 07/05/20 06:27 Nucleated RBC % (auto) 0.0 /100WBC (0.0-0.2) 07/05/20 06:27 Sodium 135 mmol/L (135-145) 07/06/20 06:29 Potassium 4.1 mmol/l (3.3-5.1) 07/06/20 06:29 Chloride 102 mmol/L (96-108) 07/06/20 06:29 Carbon Dioxide 27 mmol/L (22-29) 07/06/20 06:29 Anion Gap 10 (12-20) L 07/06/20 06:29 BUN 12 mg/dL (9-16) 07/06/20 06:29 Creatinine 0.81 mg/dL (0.5-1.4) 07/06/20 06:29 Estim Creat Clear Calc 112.4 07/06/20 06:29 Estimated GFR > 60 07/06/20 06:29 Fasting Glucose 82 mg/dL (60-99) 07/06/20 06:29 Calcium 7.7 mg/dL (8.4-10.2) L 07/06/20 06:29 Nasal Screen MRSA (PCR) NEGATIVE (Negative) 06/25/20 13:30 Nasal S. aureus Screen NEGATIVE (Negative) 06/25/20 13:30 Nasal MRSA/S.aureus Interp SEE NOTE 06/25/20 13:30 COVID-19 ([place]) Negative (Negative) 07/04/20 05:45 COVID-19 Clin Com See Note 07/04/20 05:45 Blood Type O Positive 06/29/20 12:25 Antibody Screen NEGATIVE 06/29/20 12:25 Discharge Plan Discharge Patient Disposition: Home Health Service Referrals: [facility] [Outside] - 6 Weeks (DISCHARGE TO HOME WITH [facility] FOR [facility]ICAL THEAPRY TO START NDAY AFTER HE HAS BEEN DISCHARGED PCP [facility] FO[facility] UP PER DISCHARGE INSTRUCTIONS) Luis Bustillo PA-C [Physician File Drawer Finisher] - (07/18/20 2:15) Discharge Medications: New sennosides [Senna Lax] 8.6 mg Tablet 17.2 mg PO BEDTIME PRN (Reason: Constipation) 30 Days Qty: 30 RF: 0 acetaminophen 325 mg Tablet 650 mg PO Q6H PRN (Reason: Pain, Mild (Pain Scale 1-3)) 30 Days Qty: 240 RF: 0 aspirin 325 mg Tablet 325 mg PO BID 30 Days Qty: 60 RF: 0 oxycodone 5 mg tablet 5 mg PO Q4H PRN (Reason: pain) 7 Days Qty: 42 RF: 0 Continued losartan 50 mg tablet 75 mg PO DAILY 90 Days Qty: 135 RF: 3 Discontinued ibuprofen 200 mg Tablet 400 mg PO BID PRN (Reason: Pain) RF: 0 Discharge Orders: Discharge Order (Routine); Ordered 07/06/20 Ordered By: Luis Bustillo Diet: regular diet Activity on Discharge: Use cane or walker Activity Restrictions/Additional Instructions: Physical Therapy for Total hip arthroplasty: posterior precautions, gait training, ROM, strength Limit stair climbing No showering, no tub bath-keep dressing clean, dry and intact No driving x6 weeks Continue Aspirin tabs once a day x 4 weeks Follow up with [facility] in 2 weeks Visit Report Forms: Patient Portal Discharge page Care Plan Goals: Restore fxn of the lt hip Health Concerns: None Plan of Treatment: Physical Therapy Pain management DVT prophylaxis
[2020-07-06] MEDS: Aspirin 325 MG TABLET PO (08:01)
[2020-07-06] MEDS: 0.9 % Sodium Chloride Flush 3 ML SYRINGE IVFLUSH (08:01)
[2020-07-06] MEDS: oxyCODONE HCl ER 10 MG TAB.ER.12H PO (08:02)
[2020-07-06] MEDS: Celecoxib 200 MG CAPSULE PO (08:02)
[2020-07-06] MEDS: Losartan Potassium 25 MG TABLET 75 MG PO (08:02)
[2020-07-06] MEDS: HYDROmorphone HCl 0.5 MG/0.5 ML SYRINGE IVPUSH (08:11)
--- NOTE | 2020-07-06 08:13 | MHC.CM.PN ---
Pt being discharged home today with new referral to [facility]. NA notified of DC via [employer].
[2020-07-06 08:26] VITALS: BP 140/92; PULSE 68; O2SAT 97
--- NOTE | 2020-07-06 09:31 | MHC.CM.PN ---
yehuda truong customer care specialist note electronic medical record reviewed along with case discussed with staff nurse , met with patient he is ready for discharge home and has arranged for transport .,he is aware that the [facility] will [facility] tomorrow for home physical theapruy patient is being discharged home on aspirin as a blood thinner discharged home with new referral to [facility] for [facility] physical theapry pcp patient to call for post hospitla follow up orthopedic surgical follow up per discharge instructions review of the above discharge with patient
--- NOTE | 2020-07-06 09:46 | HO.PM.IMPN ---
Subjective Subjective Date of Service: 07/06/20 Interval History: feels well Cardiovascular Cardiovascular: Reports no additional cardiovascular complaints Respiratory Respiratory: Reports no additional respiratory complaints Physical Exam Vital Signs: Vital Signs: Last Vital Signs Temp 97.6 F 07/06/20 07:10 Pulse 68 07/06/20 08:26 Resp 16 07/06/20 07:10 BP 140/92 H 07/06/20 08:26 Pulse Ox 97 07/06/20 08:26 Body Mass Index 32.7 General: AO X 3, no acute distress Resp: CTA bilateral CVS: S1,S2,RRR GI: soft, non tender, non distended Neuro: motor grossly intact Psych: appropriate affect Objective Data Current Medications Generic Name Dose Route Start Last Admin Trade Name Freq PRN Reason Stop Dose Admin Acetaminophen 650 mg 07/04/20 11:42 Acetaminophen 325 Mg Tablet PO Q6H PRN Pain, Mild (Pain Scale 1-3) Aspirin 325 mg 07/05/20 10:00 07/06/20 08:01 Aspirin 325 Mg Tablet PO 325 mg BID SAMARA Administration Celecoxib 200 mg 07/04/20 21:00 07/06/20 08:02 Celecoxib 200 Mg Capsule PO 200 mg BID SAMARA Administration Fentanyl 50 mcg 07/04/20 10:02 Fentanyl Citrate/Pf 100 Mcg/2 Ml Vial IVPUSH Q30M PRN Pain, Moderate (Pain Scale 4-6 Fentanyl 50 mcg 07/04/20 10:03 Fentanyl Citrate/Pf 100 Mcg/2 Ml Vial IVPUSH Q5M PRN Pain, Moderate (Pain Scale 4-6 Hydromorphone HCl 0.5 mg 07/04/20 10:03 07/06/20 08:11 Hydromorphone Hcl 0.5 Mg/0.5 Ml Syringe IVPUSH 0.5 mg Q5M PRN Administration Pain, Severe (Pain Scale 7-10) Hydromorphone HCl 0.25 mg 07/04/20 11:42 07/05/20 21:28 Hydromorphone Hcl 0.5 Mg/0.5 Ml Syringe IVPUSH 0.25 mg Q4H PRN Administration Pain, Severe (Pain Scale 7-10) Losartan Potassium 75 mg 07/05/20 09:00 07/06/20 08:02 Losartan Potassium 25 Mg Tablet PO 75 mg DAILY SAMARA Administration Protocol Naloxone HCl 0.2 mg 07/04/20 11:42 Naloxone Hcl 0.4 Mg/Ml Vial IVPUSH Q2M PRN Excessive sedation or RR < 8 Ondansetron HCl 4 mg 07/04/20 10:00 Ondansetron Hcl 4 Mg/2 Ml Vial IVPUSH ONCE PRN Nausea and Vomiting Ondansetron HCl 4 mg 07/04/20 11:42 Ondansetron Hcl 4 Mg/2 Ml Vial IVPUSH Q8H PRN Nausea and Vomiting Oxycodone HCl 10 mg 07/04/20 10:03 Oxycodone Hcl Immed Release 5 Mg Tablet PO ONCE PRN Pain, Severe (Pain Scale 7-10) Oxycodone HCl 10 mg 07/04/20 11:42 07/05/20 18:41 Oxycodone Hcl Immed Release 5 Mg Tablet PO 10 mg Q4H PRN Administration Pain, Moderate (Pain Scale 4-6 Oxycodone HCl 10 mg 07/04/20 21:00 07/06/20 08:02 Oxycodone Hcl Er 10 Mg Tab.Er.12h PO 10 mg BID SAMARA Administration Senna 17.2 mg 07/04/20 11:42 Sennosides 8.6 Mg Tablet PO BEDTIME PRN Constipation Sodium Chloride 3 ml 07/04/20 16:00 07/06/20 08:01 0.9 % Sodium Chloride Flush 3 Ml Syringe IVFLUSH 3 ml QSHIFT SAMARA Administration Labs CBC & Chem 7: 07/06/20 06:29 07/06/20 06:29 Assessment and Plan (1) HTN (hypertension): Status: Acute (2) LVH (left ventricular hypertrophy): Status: Acute (3) Osteoarthritis of left hip: Status: Acute (4) Smoking: Status: Acute Assessment and Plan: 65M presented for elective left hip replacement osteoarthritis left hip status post left total hip arthroplasty management per Orthopedics on asa bid for dvt prophylaxis hypertension and left ventricular hypertrophy continue losartan, controlled smoking cessation states that he does not need a nicotine patch at this time patient stable, will sign off, please recall if needed
== END 2020-07-06 12:18 | disposition home health service (06) | DRG 470 ==
LOC: HO.SSSA 06:12 → HO.S3 10:24
PROVIDERS: Nurse Practitioner; Physician Assistant; Admitting Provider Orthopaedic Surgery; PCP Nurse Practitioner Family; Visit Provider Orthopaedic Surgery
PROC: 0SRB03A Replacement of Left Hip Joint with Ceramic Synthetic Substitute, Uncemented, Open Approach (ICD-10-PCS; CPT 27130; principal; 2020-07-04 07:30)
DX: M16.12 Unilateral primary osteoarthritis, left hip (principal); G47.33 Obstructive sleep apnea (adult) (pediatric); I11.9 Hypertensive heart disease without heart failure; F17.210 Nicotine dependence, cigarettes, uncomplicated; Z71.6 Tobacco abuse counseling; Z20.828 Contact with and (suspected) exposure to other viral communicable diseases
CPT/HCPCS: 36415; 72170; 80048; 85025; 86850; 86900; 86901; 87635; 87640; 87641; 88304; 88311; 97110; 97116; 97162; 97165; 97535; C1776; J0131; J0330; J0690; J1100; J1170; J2250; J2405; J3010

== ENCOUNTER → 2020-07-18 10:15 | Outpatient (BNVA) | payer MEDICARE, OTHER, SELFPAY | PROVIDERS: PCP Nurse Practitioner Family; Referring Provider Nurse Practitioner Family; Visit Provider Physician Assistant | DX: Z47.1 Aftercare following joint replacement surgery (principal); Z96.642 Presence of left artificial hip joint | CPT/HCPCS: 99212 ==

== ENCOUNTER 2020-08-13 07:48 | Outpatient (REF) | payer MEDICARE, OTHER, SELFPAY ==
--- NOTE | 2020-08-13 09:16 | XR_ITS ---
EXAMINATION: AP PELVIS AND TWO-VIEW LEFT HIP CLINICAL INFORMATION: Left hip pain COMPARISON: July 04, 2020 and February 06, 2020 TECHNIQUE: AP pelvis and crosstable lateral left hip. FINDINGS: Patient is status post left hip total arthroplasty with prosthetic components in position. No acute fracture or diastases of the pelvis is identified. Sacroiliac joints unremarkable. There is degenerative disc disease seen L5-S1 with facet arthropathy L5-S1. There is some collar spurring seen about the right hip joint. No acute fracture or dislocation of the left hip is seen. No evidence of loosening of the prosthetic components is present. Prominent vascular calcifications are seen. XR/XR pelvis 1-2V IMPRESSION: Degenerative disc disease L5-S1. Status post left hip total arthroplasty without significant abnormality appreciated.
--- NOTE | 2020-08-13 09:16 | XR_ITS ---
EXAMINATION: AP PELVIS AND TWO-VIEW LEFT HIP CLINICAL INFORMATION: Left hip pain COMPARISON: July 04, 2020 and February 06, 2020 TECHNIQUE: AP pelvis and crosstable lateral left hip. FINDINGS: Patient is status post left hip total arthroplasty with prosthetic components in position. No acute fracture or diastases of the pelvis is identified. Sacroiliac joints unremarkable. There is degenerative disc disease seen L5-S1 with facet arthropathy L5-S1. There is some collar spurring seen about the right hip joint. No acute fracture or dislocation of the left hip is seen. No evidence of loosening of the prosthetic components is present. Prominent vascular calcifications are seen. XR/XR hip LT 1V IMPRESSION: Degenerative disc disease L5-S1. Status post left hip total arthroplasty without significant abnormality appreciated.
== END 2020-08-13 07:49 | disposition home or self-care (01) ==
LOC: HO.HOSX 07:48
PROVIDERS: Visit Provider Orthopaedic Surgery
DX: M25.559 Pain in unspecified hip (principal); Z96.642 Presence of left artificial hip joint
CPT/HCPCS: 72170; 73501; 99212

== ENCOUNTER 2020-12-05 10:40 | Outpatient (REF) | payer MEDICARE, OTHER, SELFPAY ==
--- NOTE | ~2020-12-05 | XR_ITS ---
EXAMINATION: XR KNEE, RIGHT CLINICAL INFORMATION: Right knee pain. COMPARISON: Radiographs right knee 08/04/2016. TECHNIQUE: 4 views of the right knee are obtained including AP projection with weightbearing. FINDINGS: There is osteoarthritis medial knee joint compartment with prominent joint narrowing and mild secondary genu varus. There is mild subchondral sclerosis and marginal osteophytes femoral condyle and tibial plateau. There are also lesser osteoarthritic changes patellofemoral joint without lateralization or tilting patella. There are no erosive changes or chondrocalcinosis. Small suprapatellar effusion is present. There is spurring at the quadriceps insertion patella. Hoffa's fat pad appears normal. There are atherosclerotic calcifications vasculature. XR/XR knee RT 4V IMPRESSION: 1. Osteoarthritis medial knee joint compartment with prominent joint narrowing and mild secondary genu varus. 2. Osteoarthritic changes patellofemoral joint. 3. Small suprapatellar effusion.
== END 2020-12-05 10:41 | disposition home or self-care (01) ==
LOC: HO.HMGCX 10:40
PROVIDERS: Visit Provider Nurse Practitioner Family
DX: M25.561 Pain in right knee (principal)
CPT/HCPCS: 73564

== ENCOUNTER → 2020-12-06 10:56 | Outpatient (BNVA) | payer MEDICARE, MEDICAID, SELFPAY | PROVIDERS: PCP Nurse Practitioner Family; Visit Provider Nurse Practitioner Family | DX: I49.3 Ventricular premature depolarization (principal); I10 Essential (primary) hypertension; I51.7 Cardiomegaly | CPT/HCPCS: 99212 ==

== ENCOUNTER 2020-12-13 08:26 | Outpatient (REF) | payer MEDICARE, OTHER, SELFPAY | END 2020-12-13 08:27 | disposition home or self-care (01) | LOC: HO.HOSX 08:26 | PROVIDERS: Visit Provider Physician Assistant | DX: M17.11 Unilateral primary osteoarthritis, right knee (principal); F17.210 Nicotine dependence, cigarettes, uncomplicated; Z96.642 Presence of left artificial hip joint | CPT/HCPCS: 20610; 99212; J1100 ==

== ENCOUNTER 2021-06-17 06:28 | Outpatient (REF) | payer MEDICARE, SELFPAY ==
[2021-06-17 11:42] LABS: Appearance Urine CLEAR; Color Urine YELLOW; Glucose Urine UA NEG (NEG); Leukocyte Esterase Urine NEG (NEG); Nitrite Urine NEG (NEG); Urine Blood NEG (NEG); Urine Ketones NEG (NEG); Urine Protein NEG (NEG-TRACE)
[2021-06-17 12:06] LABS: Alanine Aminotransferase 10 U/L (0-40); Albumin Level 4.1 g/dL (3.5-5.0); Alkaline Phosphatase 87 U/L (39-117); Anion Gap 13 (12-20); Aspartate Amino Transferase 14 U/L (5-37); Bilirubin Total 1.9 mg/dL (0.0-1.0); Blood Urea Nitrogen 12 mg/dL (9-16); Calcium 9.2 mg/dL (8.4-10.2); Carbon Dioxide 25 mmol/L (22-29); Chloride 104 mmol/L (96-108); Cholesterol 185 mg/dL; Estimated Glomerular Filt Rate > 60; Glucose Fasting 72 mg/dL (60-99); HDL Cholesterol 30 mg/dL; LDL Cholesterol Calculated 131 mg/dl; Potassium 4.2 mmol/L (3.3-5.1); Sodium 138 mmol/L (135-145); Total Protein 6.9 g/dL (6.5-8.0); Triglycerides 123 mg/dL
[2021-06-17 12:13] LABS: Prostate Specific Antigen Scr 4.65 ng/mL (<0.05-4.0); TSH reflex Free T4 0.86 uIU/mL (0.32-4.0)
== END 2021-06-17 06:29 | disposition home or self-care (01) ==
LOC: HO.HMGCLDS 06:28
PROVIDERS: PCP Nurse Practitioner Family; Visit Provider Nurse Practitioner Family
DX: F10.10 Alcohol abuse, uncomplicated (principal); Z12.5 Encounter for screening for malignant neoplasm of prostate
CPT/HCPCS: 36415; 80053; 80061; 81003; 84153; 84443

== ENCOUNTER → 2021-07-11 12:29 | Outpatient (BNVA) | payer MEDICARE, OTHER, SELFPAY | PROVIDERS: PCP Nurse Practitioner Family; Referring Provider Nurse Practitioner Family; Visit Provider Internal Medicine Cardiovascular Disease | DX: I51.7 Cardiomegaly (principal); I49.3 Ventricular premature depolarization; I45.19 Other right bundle-branch block; I10 Essential (primary) hypertension; G47.33 Obstructive sleep apnea (adult) (pediatric); F17.210 Nicotine dependence, cigarettes, uncomplicated; Z79.899 Other long term (current) drug therapy | CPT/HCPCS: 93005; 99212 ==

== ENCOUNTER → 2025-01-10 08:33 | Outpatient (RCR) | payer MEDICARE, OTHER, SELFPAY ==
--- NOTE | 2020-07-30 11:00 | MHC.PT.EP ---
[facility] [place] Office [place] Office [place] Office [address]ery Charles [address] [phone] F: [phone] F: [phone] F: [phone] F: [phone] Physical Therapy Plan of Care Date of Evaluation: 07/30/20 Date of Surgery: 07/04/2020 Diagnosis: s/p L artificial hip replacement Assessment: Pt is a retired 65 y/o male referred to PT for eval and treat s/p L MAURY resulting in decreased tolerance for performing squatting activities, LE dressing, performing recreational activities as well as Heavy HH chores and ambulating long distances secondary to decreased L hip ROM and strength, increased L LE tissue tension, gait abnormality, healing process and mild pain. Pt is deemed an appropriate candidate to receive skilled PT services to address his physical impairments in order to improve his functional ability. Frequency and Duration: The patient will be seen 2 x / wk x 5 wks. Short Term Goals: In 1 week: initiate HEP with evidence of compliance. In 3 weeks: symmetrical Gait achieved. Skilled Nursing Goals: In 5 weeks: I with HEP. In 5 weeks: Pt will report no difficulty performing squatting activities in his home; initial: moderate difficulty (LEFS). In 5 weeks: improve L hip ABD MMT to > 4+/5; initial: 4/5 with moderate hip flexor compensation noted. Treatment Plan: Modalities to reduce pain, spasms and effusion. Manual therapy to restore motion and function. Therapeutic exercise to improve strength and flexibility. Neuromuscular re-education for posture and balance. Therapeutic activities to return to functional activities of daily living. Please sign and return to therapist. Thank you for your referral.
--- NOTE | 2020-08-22 15:12 | MHC.PT.DC ---
[facility] [place] Office [place] Office [place] Office [address] 140 [facility] [phone] F: [phone] F: [phone] F: [phone] F: [phone] Physical Therapy Discharge Report Diagnosis: s/p L artificial hip replacement Date of Surgery: 07/04/2020 Date of Evaluation: 07/30/20 Date of Discharge: 08/22/20 Treatments to Date: 1 Cancellations to Date: 0 No Shows to Date: 0 Discharge Status: Patient Elected to Stop Discharge Summary: Pt called to cancel his apts and DC'd himself. Electronically signed by: Vickey Monique PT. Please sign and return to therapist. Thank you for your referral.
== END | disposition home or self-care (01) ==
LOC: HO.PTCHIC 07-30 08:52
PROVIDERS: PCP Nurse Practitioner Family; Visit Provider Physician Assistant
DX: Z47.1 Aftercare following joint replacement surgery (principal); Z96.642 Presence of left artificial hip joint
CPT/HCPCS: 97110; 97161